=== PATIENT | female | born 1970 | race Caucasian/White ===

== ENCOUNTER → 2016-11-11 | Outpatient (CLI) | payer BC | END | disposition home or self-care (01) | LOC: C.PAPS 12:51 | PROVIDERS: ATTEND Internal Medicine | DX: Z00.00 Encounter for general adult medical examination without abnormal findings (principal); Z11.51 Encounter for screening for human papillomavirus (HPV) ==

== ENCOUNTER → 2016-12-05 | Outpatient (CLI) | payer BC ==
[2016-12-05 12:36] LABS: ALT/SGPT 18 U/L (12-78); BLOOD UREA NITROGEN 12 mg/dl (7-18); CALCIUM 8.5 mg/dl (8.5-10.1); CARBON DIOXIDE 27 mmol/L (21-32); CHLORIDE 109 mmol/L (98-107); CHOLESTEROL 122 mg/dl (0-200); CREATININE 0.73 mg/dl (0.60-1.20); GLUCOSE 81 mg/dl (70-99); POTASSIUM 4.5 mmol/L (3.5-5.1); SODIUM 141 mmol/L (136-145)
[2016-12-05 12:47] LABS: ALKALINE PHOSPHATASE 70 U/L (45-117); AST/SGOT 18 U/L (15-37); CHOLESTEROL/HDL RATIO 1.9; HDL CHOLESTEROL 63 mg/dl; LDL CHOLESTEROL CALCULATED 51 mg/dl; THYROID STIMULATING HORMONE 0.951 uIu/ml (0.300-4.500); TRIGLYCERIDES 42 mg/dl (0-150); VERY LOW DENSITY LIPOPROT CALC 8 mg/dl
[2016-12-05 12:53] LABS: BASO % 0.6 %; BASO ABS # 0.03 K/uL (0-0.2); COMPLETE YES; EOS % 1.4 %; HEMATOCRIT 35.3 % (37-47); LYMPH % 28.5 %; LYMPH ABS # 1.38 K/uL (1.2-3.4); MEAN CELL VOLUME 83.8 fL (80-100); MEAN CORPUSCULAR HEMOGLOBIN 26.6 pg (25-34); MEAN CORPUSCULAR HGB CONC 31.7 g/dl (32-36); MEAN PLATELET VOLUME 11.4 fL (7.4-10.4); MONO % 9.1 %; NEUT % 60.4 %; PLATELET COUNT 184 K/uL (130-400); RED BLOOD COUNT 4.21 M/uL (4.2-5.4); WHITE BLOOD COUNT 4.85 K/uL (4.8-10.8)
[2016-12-05 13:06] LABS: URINE APPEARANCE CLEAR (CLEAR); URINE BILIRUBIN NEG (NEG); URINE COLOR YELLOW; URINE NITRITE NEG (NEG); URINE SPECIFIC GRAVITY 1.024 (1.000-1.030); UROBILINOGEN NEG (NEG); ZZUR CULT IF INDIC CLEAN CATCH NO
[2016-12-05 13:12] LABS: MANUAL MICROSCOPIC REQUIRED? YES; REVIEW REQ? NO
[2016-12-05 13:24] LABS: URINE RBC 0-4 /hpf (0-4)
[2016-12-05 13:25] LABS: URINE BACTERIA NEG (NEG)
== END | disposition home or self-care (01) ==
LOC: C.LABBFT 10:31
PROVIDERS: ATTEND Internal Medicine
DX: R00.2 Palpitations (principal); Z68.30 Body mass index [BMI] 30.0-30.9, adult; Z13.6 Encounter for screening for cardiovascular disorders

== ENCOUNTER → 2016-12-23 | Outpatient (CLI) | payer BC ==
[2016-12-23 17:49] LABS: BASO % 0.4 %; BASO ABS # 0.02 K/uL (0-0.2); COMPLETE YES; HEMATOCRIT 35.8 % (37-47); IG% 0.2 %; LYMPH ABS # 1.41 K/uL (1.2-3.4); MEAN CELL VOLUME 84.4 fL (80-100); MEAN CORPUSCULAR HEMOGLOBIN 27.1 pg (25-34); MEAN CORPUSCULAR HGB CONC 32.1 g/dl (32-36); MEAN PLATELET VOLUME 11.7 fL (7.4-10.4); MONO % 8.7 %; NEUT % 60.7 %; PLATELET COUNT 221 K/uL (130-400); RED BLOOD COUNT 4.24 M/uL (4.2-5.4); WHITE BLOOD COUNT 5.03 K/uL (4.8-10.8)
[2016-12-23 18:04] LABS: FERRITIN 5.6 ng/ml (8.0-388.0)
== END | disposition home or self-care (01) ==
LOC: C.LABBFT 11:47
PROVIDERS: ATTEND Internal Medicine
DX: D64.9 Anemia, unspecified (principal)

== ENCOUNTER 2018-11-06 05:52 | Observation (INO) ==
--- NOTE | 2018-10-21 16:21 | PAT Medication Instructions ---
Medication Instructions Date of Service October 21, 2018 Home Medications ferrous sulfate 325 mg (65 mg iron) tablet 325 mg PO 3XWK paroxetine HCl 20 mg PO QAM DO NOT take the morning of surgery ferrous sulfate 325 mg (65 mg iron) tablet 325 mg PO 3XWK Take morning of surgery With a small sip of water, OTHERWISE NOTHING TO EAT OR DRINK AFTER MIDNIGHT: paroxetine HCl 20 mg PO QAM Other Notes If you have any questions please call us at [phone] or [phone] or [phone] or [phone]
--- NOTE | 2018-10-22 14:49 | Anesthesiology Consultation ---
Date of Service October 22, 2018 Assessment & Plan (1) Encounter for pre-operative examination: Chart Review Chart Review: Pending: Refer to Additional Notes / Consult section (pending testing (labs)) and Patient seen in Pre Admission Testing Teaching & Discussion Pre-Anesthesia Teaching/Discussion Notes: Instructed NPO after midnight before surgery,except medications with 15 cc of water. Medication instructions provided according to the PAT guidelines. History Surgery Operation Date: 11/06/18 07:30 Proposed Procedures p Robotic Total Laparoscopic Hysterectomy - Olga Graham MD, FACOG Height/Weight Height: 5 ft 5.5 in Weight: 96.3 kg Allergies Allergy/AdvReac Type Severity Reaction Status Date / Time Sulfa (Sulfonamide Allergy Unknown Hives Verified 10/22/18 12:44 Antibiotics) naproxen AdvReac Unknown feels Verified 10/22/18 15:00 irritable CERTAIN TEA BLENDS-ITCHING, Allergy Unknown Rash Uncoded 10/22/18 12:44 RASH Medications Home Medications Medication Instructions Recorded Confirmed Last Taken ferrous sulfate 325 mg (65 mg 325 mg PO 3XWK #42 tab 09/11/18 10/22/18 Unknown iron) tablet paroxetine HCl 20 mg PO QAM 10/08/18 10/22/18 Unknown Past Medical History Medical History Low back pain Palpitations remote hx in setting of anxiety (now substantially decreased after medications for depression/anxiety) Granuloma annulare Depression with anxiety Anxiety Iron deficiency anemia Menorrhagia significant menorrhagia over past couple of weeks; SINGER SONGWRITER monitoring and will consider initiating treatment prior to hysterectomy if significant anemia on preop labs per patient Obesity PTSD (post-traumatic stress disorder) Obesity Osteoarthritis Uterine fibroid Exercise / Class Metabolic Activity III < 4 Walking/Shop/Light housework Past Family History Family History Grandfather No problems noted. Father Liver cancer Colorectal cancer Grandmother (Paternal) Ovarian cancer Sister Multiple sclerosis Grandmother (Maternal) Family history of diabetes mellitus Family/Other Family history of diabetes mellitus GREAT NEPHEW Past Surgical History Surgical History H/O tubal ligation History of surgery LEFT RING FINGER (+ HARDWARE) History of wisdom tooth extraction Past Anesthesia History No Hx of Anesthesia Complications and No Family Hx of Anesthesia Complications History of PONV No Hx of PONV and Hx of Motion Sickness ("mild") Social History Smoking Status: Never smoker Do You Dip or Chew Tobacco: No Hx Alcohol Use: Yes Alcohol type: wine alcohol intake frequency: holidays/special occasions only Hx Substance Use: No substance use type: does not use Review of Systems Patient denies chest pain, shortness of breath, reflux, cough, wheezing, palpitations. Physical Exam Vital Signs VITALS BP 101/68 P 62 TEMP 97.6 SP02 97%RA RESP 18 PHYSICAL Full neck and c-spine range of motion. Full TMJ range of motion. TMD 3 finger breaths Mallampati Score 3 Dentition: missing molars Lungs: clear throughout to auscultation Cardiac: regular rate and rhythm, no murmurs noted Spine: normal Carotid arteries: negative bruit Extremities: no edema Testing Laboratory Results 09/14/18 SODIUM 139 POTASSIUM 4.1 CHLORIDE 103 CO2 30 BUN 11 CREATININE 0.85 GLUCOSE 85 Electrocardiogram Date: 03/04/18 Findings: + NSR @ (76) Chest X-Ray Date: 03/04/18 Findings: + NAD
[2018-10-22 15:39] LABS: Basophils # (auto) 0.02 K/uL (0-0.2); Basophils % (auto) 0.3 %; Eosinophils # (auto) 0.14 K/uL (0-0.5); Eosinophils % (auto) 2.1 %; Hematocrit (blood only) 36.3 % (37-47); Hemoglobin 12.2 g/dL (12.0-16.0); Immature Granulocytes # (auto) 0.01 K/uL (0.00-0.02); Immature Granulocytes % (auto) 0.2 %; Lymphocytes # (auto) 2.22 K/uL (1.2-3.4); Lymphocytes % (auto) 33.3 %; Mean Corpuscular Hemoglobin 30.2 pg (25-34); Mean Corpuscular Hgb Conc 33.6 g/dL (32-36); Mean Corpuscular Volume 89.9 fL (80-100); Mean Platelet Volume 11.2 fL (7.4-10.4); Monocytes # (auto) 0.46 K/uL (0.11-0.59); Monocytes % (auto) 6.9 %; Neutrophils # (auto) 3.81 K/uL (1.4-6.5); Neutrophils % (auto) 57.2 %; Platelet Count 221 K/uL (130-400); RDW Standard Deviation 46.3 fL (36.4-46.3); Red Blood Count 4.04 M/uL (4.2-5.4); White Blood Count 6.66 K/uL (4.8-10.8)
[2018-11-06] MEDS ORDERED: LACTATED RINGER'S 1,000 ML IV SCH ×2 (06:00→11:00)
[2018-11-06] MEDS ORDERED: LR 15ML/HR IV SCH (06:00)
[2018-11-06] MEDS ORDERED: CEFAZOLIN 2000MG 2,000 MG/15 ML SYR IV SCH (06:00)
[2018-11-06] MEDS ORDERED: fentaNYL citrate 100 MCG/2 ML VIAL IV PRN (06:53)
[2018-11-06] MEDS ORDERED: HYDROmorphone INJ 1 MG/ML SYRINGE IV PRN (06:53)
[2018-11-06] MEDS ORDERED: ATROPINE SULFATE 0.1 MG/ML 10ML SYR IV PRN (06:53)
[2018-11-06] MEDS ORDERED: ONDANSETRON INJ 2 MG/ML 2 ML VIAL IV PRN ×2 (06:53→10:57)
[2018-11-06] MEDS ORDERED: ePHEDrine sulfate 50 MG/ML AMP IV PRN (06:53)
[2018-11-06] MEDS ORDERED: LIDOCAINE HCL 2% 2 ML VIAL/AMP(20MG/ML) INFIL ONE (06:58)
[2018-11-06] MEDS ORDERED: PROPOFOL IV EMULSION 10 MG/ML 20 ML VIAL IV ONE (06:58)
[2018-11-06] MEDS ORDERED: DEXAMETHASONE SOD INJ 4 MG/ML VIAL ONE (06:58)
[2018-11-06] MEDS ORDERED: MIDAZOLAM HCL 1 MG/ML 2ML VIAL ONE (06:58)
[2018-11-06] MEDS ORDERED: fentaNYL citrate 100 MCG/2 ML VIAL ONE ×2 (06:58→10:11)
[2018-11-06] MEDS ORDERED: BUPIVACAINE 0.5 % 5 MG/1 ML MPF 30ML VIAL ONE (07:01)
[2018-11-06] MEDS ORDERED: ACETAMINOPHEN 1000 MG/100 ML IV IV ONE (07:06)
--- NOTE | 2018-11-06 07:12 | History & Physical Bridge Note ---
Date of Service November 06, 2018 History & Physical Bridge Note I have examined the patient, reviewed the History & Physical and in the interval since the performance of the History & Physical I have noted the following changes of clinical significance: no changes noted
[2018-11-06] MEDS ORDERED: HYDROmorphone INJ 2 MG/ML SYR/VIAL ONE (08:14)
[2018-11-06] MEDS ORDERED: ROCURONIUM BROMIDE 10 MG/ML 5 ML VIAL ONE ×2 (08:32→10:35)
[2018-11-06] MEDS ORDERED: LARYING-O-JET KIT (LTA) ONE (08:32)
[2018-11-06] MEDS ORDERED: METHYLENE BLUE 0.5% 10 ML VIAL ONE (08:42)
[2018-11-06] MEDS ORDERED: GLYCOPYRROLATE 0.2 MG/ML VIAL ONE (10:01)
[2018-11-06] MEDS ORDERED: NEOSTIGMINE METHYLSULFATE 5 MG/5 ML SYR ONE (10:01)
[2018-11-06] MEDS ORDERED: CEFAZOLIN 250 MG/ML 1 GM VIAL ONE (10:45)
[2018-11-06] MEDS ORDERED: KETOROLAC 30 MG/ML VIAL ONE (10:46)
[2018-11-06] MEDS ORDERED: KETOROLAC 30 MG/ML VIAL IV PRN (10:57)
[2018-11-06] MEDS ORDERED: IBUPROFEN 600 MG TAB PO PRN (10:57)
[2018-11-06] MEDS ORDERED: SIMETHICONE 80 MG CHEW PO PRN (10:57)
[2018-11-06] MEDS ORDERED: ACETAMINOPHEN 325 MG TAB PO PRN (10:57)
[2018-11-06] MEDS ORDERED: OXYCODONE/ACETAMINOPHEN 5mg/325mg TAB PO PRN ×2 (10:57)
--- NOTE | 2018-11-06 10:57 | Post Operative Brief Note ---
PG Immediate Post Op with CF Date of Surgery November 06, 2018 Pre & Post Diagnosis Operation Date: 11/06/18 07:30 Pre-Op Diagnosis: Menorrhagia, Uterine Fibroid, h/o anemia Post-Op Diagnosis: Menorrhagia, Uterine Fibroid, h/o anemia Procedure Operation Date: 11/06/18 07:30 Actual Procedures p Robotic Assisted Total Laparoscopic Hysterectomy with Bilateral Salpingectomies, cystoscopy, uterine morcellation Surgeon Olga Graham MD, FACOG Residential Team Leader Tigist Santos Estimated Blood Loss 25 Findings Consistent with Post-Op Diagnosis (enlarged uterus with fibriod about 12 wk size. nl ovaries bilaterally, nl fallopian tubes bilat. cysto with nl ureteral jets and bladder filling. liver edge normal. ) Fluids 1400 Specimens Specimen Description: A: Uterus, Bilateral Fallopian tubes, and Cervix Drains Temple Catheter Anesthesia Type General Disposition Accompanied Patient To Recovery: No Disposition: Recovery Room
--- NOTE | 2018-11-06 12:06 | Anesthesiology Progress Note ---
Date of Service November 06, 2018 Anesthesia Post Procedure Vital Signs Vital Signs: Temp Pulse Pulse Resp BP BP Pulse Ox 11/06/18 11:55 68 14 132/70 98 11/06/18 11:45 80 13 126/71 98 11/06/18 11:35 94 H 13 107/73 98 11/06/18 11:27 36.3 C L 99 H 20 132/87 94 11/06/18 06:23 36.6 C 66 18 117/77 97 Transfer of Care Handoff Completed per policy Notes Mental Status: alert / awake / arousable and participated in evaluation Patient Amnestic to Procedure: Yes Nausea / Vomiting: adequately controlled Pain: adequately controlled Airway Patency, RR, SpO2: stable & adequate BP & HR: stable & adequate Hydration State: stable & adequate Anesthetic Complications: no major complications apparent and Pt Satisfied with anesthetic care
--- NOTE | 2018-11-06 12:56 | Operative Report ---
PG Post Operative Report Pre & Post Diagnosis Operation Date: 11/06/18 07:30 Pre-Op Diagnosis: Menorrhagia, Uterine Fibroid, h/o anemia Post-Op Diagnosis: Menorrhagia, Uterine Fibroid. h/o anemia Procedure Operation Date: 11/06/18 07:30 1. Total laparoscopic hysterectomy 2. Bilateral salpingectomies 3. Cystoscopy 4. Morcellation of uterus 5. Robotic assistance Surgeon Olga Graham MD, FACOG Domestic Maid Dr. Favian Escoto Estimated Blood Loss 25 Findings Consistent with Post-Op Diagnosis (uterus enlarged 14wk size with large fundal fibroid. normal ovaries and tubes bilaterally with evidence of prior tubal ligation. normal liver egde. cystoscopy findings with normal bladder filling and normal ureteral jets. ) Fluids 1400 Specimens uterus, cervix, bilateral fallopian tubes Drains allison Anesthesia Type General Complications none Disposition Accompanied Patient To Recovery: No Disposition: Recovery Room Indications 48yo with cc of menorrhagia to anemia and large fibroid uterus who after discussion of treatment options, desires definitive hysterectomy. See admission H&P for full details. Description of Procedure The patient was taken to the operating room and identified. After adequate general anesthesia was obtained she was placed in the dorso lithotomy position and prepped and draped in the usual sterile fashion. Attention was turned to the patient's vagina where a weighted speculum and anterior retractor were placed to visualize the cervix. This was after a Allison catheter had been placed under sterile conditions. The cervix was grasped on its anterior lip with an Allis clamp. A single interrupted suture of 0 Vicryl was placed at the 3 o'clock position of the cervix. The cervix was sounded to 12 cm. The V-Care uterine manipulator device was gently placed through the cervical os and the balloon was inflated. The suture material was attached to the cup and then the stabilizing cup was placed. The Allis clamp had been removed. All of the remaining retractors were removed. Attention was then turned to the patient's abdomen where a supraumbilical skin incision was made with the scalpel. The verees needle was placed intraperitoneally with an opening pressure of 6 mmHg. A pneumoperitoneum was created. The 12 mm optical trocar was then placed under direct visualization into the peritoneal cavity. The patient was placed in steep Trendelenburg. Her pelvis was inspected with the findings as noted above. Two trocar sites were created right of the midline by first making skin incisions with a scalpel and then placing da Billy trocars under direct visualization. An additional da Billy trocar site was created left of the midline under direct visualization and a 5 mm patient assist port was also placed in the left upper quadrant. The robot was then brought to the patient's bedside and the appropriate instrument arms were connected to the appropriate trocars. The camera was introduced and then the instruments were introduced under direct visualization including a fenestrated bipolar, monopolar valeria and a pro-grasp instrument. The bowel had been teased away as best as possible from the planned operative sites. The surgeon then went to the console. Attention was turned to the right utero-ovarian ligament area. Mobility from below was poor. For that reason the press assistant went to the press assistant port and using a grasper,grasped the right cornu of the uterus in order to expose better the planned operative site at the right utero-ovarian ligament. The utero-ovarian ligament, round ligament complex was then taken down sequentially using coagulation and cutting. The anterior and posterior leaves of the broad lig ament were opened up into and the bladder flap was begun from the right side towards the midline. The uterine artery pedicle was skeletonized on this side. The vessels were coagulated. Attention was then turned to the left uterine ovarian pedicle. The grasping instrument was moved to the left cornu to expose this area. The tissues of the left uterine ovarian ligament, round ligament complex were further taken down with coagulation and cutting. The broad ligament attachments were opened up into creating an anterior bladder flap that met in the midline from the right. The uterine artery pedicle was then skeletonized. The uterine artery pedicle was then coagulated and sequentially cut. The cardinal ligament attachments were further coagulated and sequentially transected. The bladder had been pushed well away from the planned operative sites. Attention was returned to the right uterine artery pedicle which was was then re-coagulated and transected and the cardinal ligament attachments were further coagulated and transected. This allowed mobilization of the planned colpotomy site. The combiner operator then had the press assistant remove the grasping instrument from above and the press assistant went below in order to elevate the uterus to expose the planned colpotomy site. The colpotomy was then performed coming from the posterior aspect moving anteriorly and circumferentially. The specimen had been completely transected. At this point an attempt was made to remove the specimen from the vagina. Bivalving was begun however visualization was difficult. Uterus had seemed to be coming down with sequential transection however ultimately it was decided that the uterus would need to be morcellated in a bag through the abdominal incision. The bilateral salpinges were then coagulated and transected and removed vaginally as specimen. The #1 instrument arm was replaced with a needle water taxi driver. The 2-0 V lock 90 suture was passed vaginally and the cuff was closed in a routine fashion using the suture material and the back stitch was placed. At this point the cystoscopy took place with the findings as noted above. The pelvis had been irrigated and there were no active bleeding sites. At this point the robot was undocked. It was moved away from the patient's bedside. Using a 5 mm camera to observe, a large specimen bag was placed through the midline incision trocar and the specimen was placed within the bag. It was brought up to the supraumbilical skin site. At this point using using Mauricio thyroid retractors and a knife, the uterus was cored/morcellated within the bag and sent as specimen. Once the specimen was removed the trocar had been removed and an Allis clamp was placed across this incision site to allow for maintenance of the pneumoperitoneum. It is si gnificant to mention that this incision site was extended at the level of the skin and fascia to allow for the uterine morcellation. The pelvis was examined reinspected and there was no active bleeding sites although the cuff was moist. For that reason Surgicel was placed across the anterior aspect of the vaginal cuff. The CO2 gas was allowed to escape from the patient's abdomen partilaly and there were no active bleeding sites noted. At this point the procedure was terminated. The CO2 gas was allowed to escape from her abdomen completely and all the trocars were removed. The fascia at the supraumbilical skin site was reapproximated with 0 Vicryl in a running fashion. All skin incisions were closed in a subcuticular fashion using 4-0 Vicryl. The incisions were injected with Marcaine and dressed with Dermabond. Following the cystoscopy a new Allison catheter had been placed. The patient was returned to the supine position and awoken from anesthesia. She was transported to recovery room in stable condition. All sponge lap needle counts were correct x2. I attest to the content of the Intraoperative Record and any orders documented therein. Any exceptions are noted below.
--- NOTE | 2018-11-09 09:49 | Discharge Summary ---
Date of Service Date of admission and date of discharge: November 06, 2018. Discharge Data Procedures Performed Operation Date: 11/06/18 07:30 1. Total laparoscopic hysterectomy 2. Bilateral salpingectomies 3. Cystoscopy 4. Morcellation of uterus 5. Robotic assistance Hospital Course (1) Menorrhagia: (2) Iron deficiency anemia: (3) Fibroid, uterine: Patient admitted and above procedures performed for above indicated diagnoses. See her full history and physical note for more details. She tolerated procedure well and was stable for discharge to home later that day. Esvin santana was tolerating a regular diet, ambulating and voiding without problem and her pain was well controlled. She was given discharge instructions, pain medication prescriptions and appointment for 2 week followup in office.
== END 2018-11-06 19:00 | disposition home or self-care (01) ==
LOC: ASU 05:52 → 4N 05:52